=== PATIENT | female | born 1985 | race African-American/Black ===

== ENCOUNTER 2017-01-18 00:47 | Observation (INO) | payer MEDICAID ==
[~2017-01-18] VITALS: Ht 165.1 cm; Wt 75.1 kg
[2017-01-18 01:00] VITALS: BP 130/96
[2017-01-18] MEDS ORDERED: DSS100 PO (01:07)
[2017-01-18] MEDS ORDERED: PREN-154 PO (01:07)
[2017-01-18] MEDS ORDERED: OLAN5TAB2 PO (07:46)
== END 2017-01-18 02:00 | disposition left against medical advice (07) ==
LOC: EMS 00:49 → 4S 01:15 → INTOOBSV 01:15
PROVIDERS: ADMIT Obstetrics & Gynecology; ATTEND Obstetrics & Gynecology
DX: O26.893 Other specified pregnancy related conditions, third trimester (principal); Z00.8 Encounter for other general examination; Z3A.33 33 weeks gestation of pregnancy

== ENCOUNTER 2017-01-18 07:29 | Inpatient (IN) | payer MEDICAID ==
[~2017-01-18] VITALS: Ht 160 cm; Wt 72.0 kg
[~2017-01-18 07:29] MED LIST: DSS100 PO; PREN-154 PO
[2017-01-18] MEDS ORDERED: OLAN5TAB2 PO (07:46)
[2017-01-18] MEDS ORDERED: HALOPERIDOL LACTATE 5 MG/ML VIAL IM ONE (08:30)
[2017-01-18] MEDS ORDERED: DiphenhydrAMINE HCL 50 MG/ML VIAL IM ONE (08:30)
[2017-01-18] MEDS ORDERED: LORazepam 2 MG/ML VIAL IM ONE (08:30)
[2017-01-18 09:11] LABS: BASOPHILS # (AUTO) 0.05 K/uL (0.00-0.20); BASOPHILS % (AUTO) 0.4 % (0.0-2.0); EOSINOPHILS # (AUTO) 0.06 K/uL (0.00-0.70); EOSINOPHILS % (AUTO) 0.48 % (1.0-6.0); HEMATOCRIT 38.8 % (36-46); HEMOGLOBIN 12.7 g/dL (12.0-16.0); LYMPHOCYTES # (AUTO) 1.7 K/uL (1.0-4.8); LYMPHOCYTES % (AUTO) 13.7 % (22.0-44.0); MEAN CORPUSCULAR HEMOGLOBIN 31.5 pg (26.0-34.0); MEAN CORPUSCULAR HGB CONC 32.8 G/dL (31.0-37.0); MEAN CORPUSCULAR VOLUME 96 fL (80-100); MONOCYTES # (AUTO) 1.2 K/uL (0.1-1.0); MONOCYTES % (AUTO) 9.5 % (2.0-9.0); NEUTROPHILS # (AUTO) 9.4 K/uL (1.8-7.7); NEUTROPHILS % (AUTO) 75.9 % (40.0-70.0); PLATELET COUNT (AUTO) 278 K/uL (150-450); RED BLOOD CELL COUNT(AUTO) 4.04 MIL/uL (4.00-5.20); WHITE BLOOD COUNT (AUTO) 12.4 K/uL (4.5-11.0)
[2017-01-18 09:16] LABS: ANION GAP 9 mmol/L (8-16); CALCIUM, TOTAL 9.1 mg/dL (8.8-10.5); CARBON DIOXIDE 27 mmol/L (22-29); CHLORIDE 102 mmol/L (98-107); GLOMERULAR FILTR. RATE CALC > 60 mL/min (>60); POTASSIUM 3.2 mmol/L (3.5-5.1); SODIUM SERUM 138 mmol/L (136-145); UREA NITROGEN, BLOOD 12 mg/dL (7-18)
[2017-01-18 09:21] LABS: ALANINE AMINOTRANSFERASE 56 U/L (12-78); ALBUMIN 2.9 g/dL (3.4-5.0); ASPARTATE AMINOTRANSFERASE 30 U/L (15-37); BILIRUBIN,TOTAL 0.5 mg/dL (0.1-1.0); TOTAL PROTEIN, SERUM 7.2 g/dL (6.4-8.2)
[2017-01-18] MEDS ORDERED: LORazepam 2 MG TABLET PO PRN (09:30)
[2017-01-18] MEDS ORDERED: ZOLPIDEM TARTRATE 10 MG TABLET PO PRN (09:30)
[2017-01-18] MEDS ORDERED: HALOPERIDOL 5 MG TABLET PO PRN (09:30)
[2017-01-18 10:40] LABS: LACTATE DEHYDROGENASE 274 U/L (81-234); URIC ACID 7.4 mg/dL (2.6-7.2)
[2017-01-18 11:25] LABS: APPEARANCE,URINE CLOUDY (CLEAR); GLUCOSE, URINE (UA) NEGATIVE (NEGATIVE); KETONES,URINE NEGATIVE (NEGATIVE); LEUKOCYTE ESTERASE ,URINE SMALL (NEGATIVE); OCCULT BLOOD,URINE NEGATIVE (NEGATIVE); PROTEIN,URINE POS 1+ (NEGATIVE)
[2017-01-18 11:33] LABS: RBC,URINE None Seen /HPF (0-2); SQUAMOUS EPITHELIAL CELL,UR Few /LPF (None Seen)
[2017-01-18] MEDS ORDERED: RINGERS SOLUTION,LACTATED 1,000 ML IV ONE ×3 (13:15→17:45)
[2017-01-18] MEDS: POTASSIUM CHLORIDE 20 MEQ ER TABLET PO ONE ×2 (13:36→14:23)
[2017-01-18] MEDS ORDERED: BETAMETHASONE SOLUSPAN 6 MG/ML 5 ML VIAL IM SCH (14:00)
[2017-01-18] MEDS ORDERED: ONDANSETRON HCL 4 MG/2 ML VIAL IVP ONE (15:15)
[2017-01-18 16:13] LABS: BASOPHILS % (AUTO) 0.1 % (0.0-2.0); EOSINOPHILS % (AUTO) 0.7 % (1.0-6.0); HEMATOCRIT 34.8 % (36-46); HEMOGLOBIN 11.9 g/dL (12.0-16.0); LYMPHOCYTES # (AUTO) 1.5 K/uL (1.0-4.8); LYMPHOCYTES % (AUTO) 15.1 % (22.0-44.0); MEAN CORPUSCULAR HEMOGLOBIN 32.5 pg (26.0-34.0); MEAN CORPUSCULAR HGB CONC 34.3 G/dL (31.0-37.0); MEAN CORPUSCULAR VOLUME 95 fL (80-100); MONOCYTES # (AUTO) 0.8 K/uL (0.1-1.0); MONOCYTES % (AUTO) 7.9 % (2.0-9.0); NEUTROPHILS # (AUTO) 7.4 K/uL (1.8-7.7); NEUTROPHILS % (AUTO) 76.2 % (40.0-70.0); PLATELET COUNT (AUTO) 249 K/uL (150-450); RED BLOOD CELL COUNT(AUTO) 3.67 MIL/uL (4.00-5.20); RED CELL DISTRIBUTION WIDTH 13.2 % (11.5-14.5); WHITE BLOOD COUNT (AUTO) 9.7 K/uL (4.5-11.0)
[2017-01-18 16:43] LABS: RUBELLA SCREEN (IGG) IMMUNE (IMMUNE)
[2017-01-18] MEDS ORDERED: PROMETHAZINE HCL 25 MG/ML VIAL IM ONE ×2 (17:45→21:15)
[2017-01-18 19:56] VITALS: BP 121/81
[2017-01-18 21:49] LABS: RAPID PLASMA REAGIN NONREACTIVE (NONREACTIVE)
[2017-01-19] MEDS ORDERED: OLANZapine 5 MG TABLET PO SCH (09:00)
[2017-01-19] MEDS ORDERED: PRENATAL VIT#96/FERROUS FUM/FA TABLET PO SCH (09:00)
[2017-01-19] MEDS ORDERED: DOCUSATE SODIUM 100 MG CAPSULE PO SCH (09:00)
[2017-01-19] MEDS ORDERED: HALOPERIDOL LACTATE 5 MG/ML VIAL ONE (11:30)
== END 2017-01-18 22:09 | disposition short-term general hospital (02) | DRG 566 ==
LOC: EMS 07:31 → 3EC 12:51
PROVIDERS: ADMIT Psychiatry & Neurology Psychiatry; ATTEND Psychiatry & Neurology Psychiatry
DX: O99.341 Other mental disorders complicating pregnancy, first trimester (principal); F15.20 Other stimulant dependence, uncomplicated; E86.0 Dehydration; O99.321 Drug use complicating pregnancy, first trimester; F20.9 Schizophrenia, unspecified; O99.281 Endocrine, nutritional and metabolic diseases complicating pregnancy, first trimester; Z53.29 Procedure and treatment not carried out because of patient's decision for other reasons; F23 Brief psychotic disorder; O99.331 Smoking (tobacco) complicating pregnancy, first trimester; F17.210 Nicotine dependence, cigarettes, uncomplicated; Z91.5 Personal history of self-harm; Z81.8 Family history of other mental and behavioral disorders; Z59.0 Homelessness; Z3A.08 8 weeks gestation of pregnancy
CPT/HCPCS: 76805; 83615; 84550; 86592; 86762; 86850; 86870; 86900; 86901; 87340; 96361; 96372; 96374; 99285; G0480; J0702; J1200; J1630; J2060; J2405; J2550; J7120

== ENCOUNTER 2017-01-18 20:30 | Inpatient (IN) | payer MEDICAID ==
[~2017-01-18 20:30] MED LIST changes: +OLAN5TAB2 PO
[2017-01-18] MEDS ORDERED: LORazepam 1 MG TABLET PO PRN (23:15)
[2017-01-18] MEDS ORDERED: HALOPERIDOL 5 MG TABLET PO PRN (23:15)
[2017-01-18] MEDS ORDERED: ZOLPIDEM TARTRATE 10 MG TABLET PO PRN (23:15)
[2017-01-18] MEDS ORDERED: ONDANSETRON HCL 4 MG TABLET PO PRN (23:30)
[2017-01-19] MEDS: ONDANSETRON HCL 4 MG TABLET PO PRN ×2 (00:01→13:46)
[2017-01-19 00:09] VITALS: BP 130/89
[2017-01-19] MEDS ORDERED: RINGERS SOLUTION,LACTATED 1,000 ML IV SCH ×2 (00:30→14:11)
[2017-01-19] MEDS ORDERED: METOCLOPRAMIDE HCL 5 MG/ML 2 ML VIAL IVP PRN (08:15)
[2017-01-19] MEDS ORDERED: DOCUSATE SODIUM 100 MG CAPSULE PO SCH (09:00)
[2017-01-19] MEDS ORDERED: PRENATAL VIT#96/FERROUS FUM/FA TABLET PO SCH (09:00)
[2017-01-19 09:13] VITALS: BP 140/81
[2017-01-19] MEDS ORDERED: HALOPERIDOL LACTATE 5 MG/ML VIAL IM ONE (11:30)
[2017-01-19] MEDS ORDERED: POTASSIUM CHL 20 MEQ/D5-0.45NS 1,000 ML IV ONE (13:15)
[2017-01-19] MEDS ORDERED: RINGERS SOLUTION,LACTATED 1,000 ML IV PRN (14:11)
[2017-01-19] MEDS ORDERED: ONDANSETRON HCL 4 MG/2 ML VIAL IVP PRN (14:15)
[2017-01-19] MEDS ORDERED: BETAMETHASONE SOLUSPAN 6 MG/ML 5 ML VIAL IM ONE (14:15)
[2017-01-19] MEDS: MAG HYDROX/AL HYDROX/SIMETH 30 ML SUSP UDCUP PO PRN ×2 (16:54→22:02)
[2017-01-19] MEDS ORDERED: OLANZapine 5 MG RAPDIS TABLET PO SCH (21:00)
[2017-01-19] MEDS ORDERED: HALOPERIDOL 5 MG TABLET PO SCH (21:00)
== END 2017-01-19 22:45 | disposition left against medical advice (07) | DRG 566 ==
LOC: OBSVTOIN 20:30 → 4S 20:30
PROVIDERS: ADMIT Psychiatry & Neurology Psychiatry; ATTEND Psychiatry & Neurology Psychiatry
DX: O99.343 Other mental disorders complicating pregnancy, third trimester (principal); O41.03X0 Oligohydramnios, third trimester, not applicable or unspecified; F20.9 Schizophrenia, unspecified; Z53.21 Procedure and treatment not carried out due to patient leaving prior to being seen by health care provider; Z3A.33 33 weeks gestation of pregnancy
CPT/HCPCS: 59025; 76805; 96360; 96361; J0702; J1630; J2405; J2765; J3480; J7120; Q0162

== ENCOUNTER 2017-01-21 00:29 | Observation (INO) | payer MEDICAID ==
[~2017-01-21] VITALS: Ht 165.1 cm; Wt 80.3 kg
[2017-01-21] MEDS ORDERED: RINGERS SOLUTION,LACTATED 1,000 ML IV SCH (01:30)
[2017-01-21 01:39] LABS: BASOPHILS # (AUTO) 0.04 K/uL (0.00-0.20); BASOPHILS % (AUTO) 0.3 % (0.0-2.0); EOSINOPHILS % (AUTO) 0.01 % (1.0-6.0); HEMATOCRIT 37.4 % (36-46); HEMOGLOBIN 12.3 g/dL (12.0-16.0); LYMPHOCYTES # (AUTO) 1.6 K/uL (1.0-4.8); MEAN CORPUSCULAR HEMOGLOBIN 31.6 pg (26.0-34.0); MEAN CORPUSCULAR HGB CONC 32.9 G/dL (31.0-37.0); MEAN CORPUSCULAR VOLUME 96 fL (80-100); MONOCYTES # (AUTO) 0.9 K/uL (0.1-1.0); MONOCYTES % (AUTO) 5.9 % (2.0-9.0); NEUTROPHILS % (AUTO) 83.8 % (40.0-70.0); PLATELET COUNT (AUTO)-OB 243 K/uL (150-450); RED BLOOD CELL COUNT(AUTO) 3.89 MIL/uL (4.00-5.20); RED CELL DISTRIBUTION WIDTH 13.6 % (11.5-14.5)
[2017-01-21 01:48] LABS: APPEARANCE,URINE CLEAR (CLEAR); GLUCOSE, URINE (UA) NEGATIVE (NEGATIVE); KETONES,URINE >=80 mg/dL (NEGATIVE); LEUKOCYTE ESTERASE ,URINE NEGATIVE (NEGATIVE); NITRATE,URINE NEGATIVE (NEGATIVE); OCCULT BLOOD,URINE NEGATIVE (NEGATIVE); PH,URINE 7.5 (5.0-8.0); PROTEIN,URINE POS 1+ (NEGATIVE); UROBILINOGEN,URINE 0.2 mg/dL (<=1.0)
[2017-01-21 01:49] LABS: ANION GAP 7 mmol/L (8-16); CALCIUM, TOTAL 8.8 mg/dL (8.8-10.5); CARBON DIOXIDE 32 mmol/L (22-29); CHLORIDE 102 mmol/L (98-107); CREATININE 0.89 mg/dL (0.60-1.30); GLOMERULAR FILTR. RATE CALC > 60 mL/min (>60); GLUCOSE,RANDOM 87 mg/dL (70-110); POTASSIUM 3.3 mmol/L (3.5-5.1); SODIUM SERUM 141 mmol/L (136-145); UREA NITROGEN, BLOOD 11 mg/dL (7-18)
[2017-01-21 01:49] LABS: BILIRUBIN,URINE PRELIM. POSITIVE (NEGATIVE)
[2017-01-21 01:55] LABS: ALANINE AMINOTRANSFERASE 59 U/L (12-78); ALBUMIN 2.8 g/dL (3.4-5.0); ALKALINE PHOSPHATASE 145 U/L (46-116); ASPARTATE AMINOTRANSFERASE 35 U/L (15-37); BILIRUBIN,TOTAL 0.5 mg/dL (0.1-1.0); TOTAL PROTEIN, SERUM 6.5 g/dL (6.4-8.2)
[2017-01-21 01:57] LABS: INR 0.9 (0.9-1.1); PROTHROMBIN TIME 9.8 SEC (9.4-11.6)
[2017-01-21] MEDS ORDERED: MAG HYDROX/AL HYDROX/SIMETH 30 ML SUSP UDCUP PO PRN (02:45)
[2017-01-21] MEDS ORDERED: POTASSIUM CHL 20 MEQ/D5-0.45NS 1,000 ML IV ONE (03:00)
[2017-01-21 04:33] LABS: URIC ACID 8.7 mg/dL (2.6-7.2)
[2017-01-21] MEDS ORDERED: LORazepam 1 MG TABLET PO ONE (04:45)
[2017-01-21] MEDS ORDERED: LORazepam 1 MG TABLET ONE (04:52)
[2017-01-21] MEDS ORDERED: ONDANSETRON HCL 4 MG/2 ML VIAL IVP SCH (05:00)
[2017-01-21] MEDS ORDERED: LORazepam 2 MG/ML VIAL IVP ONE (05:00)
[2017-01-21 07:20] VITALS: BP 165/103
== END 2017-01-21 09:30 | disposition other institution (70) ==
LOC: 4S 00:29
PROVIDERS: ADMIT Obstetrics & Gynecology; ATTEND Obstetrics & Gynecology
DX: O26.893 Other specified pregnancy related conditions, third trimester (principal); R10.9 Unspecified abdominal pain; Z3A.33 33 weeks gestation of pregnancy
CPT/HCPCS: 36415; 59025; 76811; 80053; 80307 ×8; 80324; 80349; 81003; 84550; 85025; 85610; 85730; 96361; 96374; 96375; G0378; J2060; J2405; J3480; J7120